=== PATIENT | female | born 1975 | race Caucasian/White ===

== ENCOUNTER → 2020-12-06 10:32 | Outpatient (CLI) | payer BC, SELFPAY ==
--- NOTE | ~2020-12-06 | US_ITS ---
EXAMINATION: US thyroid EXAM DATE: 12/06/2020 10:53 INDICATION: Hypothyroidism. TECHNIQUE: Multiple grayscale and Doppler images of the thyroid were obtained (by a technologist who performed the scan) and subsequently reviewed. Individual nodules and recommendations may be reporte d in accordance with TI-RADS system as designated by the 2017 ACR White Paper TI-RADS committee. Comp wilfrido is made to prior examination from 10/11/2015. FINDINGS: The right there are lobe measures 5.0 x 2.0 x 1.9 cm, the left measuring 5.1 x 1.5 x 1.7 cm. Mildly h eterogeneous thyroid echogenicity with scattered nodules. Largest nodule is in the right thyroid lobe measuring 3.0 x 1.4 x 2.1 cm, predominantly solid (2 poin ts), hypoechoic (2 points), wider than tall, smooth well defined margin, without echogenic foci, drew gory TR4 for this nodule. In 2016 this nodule was predominantly cystic, measuring 3.4 x 1.6 x 2.5 cm , has decreased in size but suspect increase in solid component. This nodule was previously biopsied on 10/18/2015, please correlate with histology of that report. Largest left thyroid lobe nodule measures 1.3 x 0.7 x 1.4, solid (2 points), hypoechoic (2 points), w ider than tall, smooth well defined margin, without echogenic foci, category TR4 for this nodule. Th is is unchanged compared to 2016, has demonstrated stability and this likely benign. Other category TR 3 and 4 nodules which are smaller. IMPRESSION: Multinodular goiter. Reviewed, dictated and finalized at location B. DENTURED APPRENTICE IMPRESSION: Multinodular goiter.
== END ==
PROVIDERS: PCP Internal Medicine; Visit Provider Internal Medicine
DX: E03.9 Hypothyroidism, unspecified (principal); E04.2 Nontoxic multinodular goiter
CPT/HCPCS: 76536

== ENCOUNTER 2021-01-10 13:23 | Outpatient (CLI) | payer BC, SELFPAY ==
--- NOTE | ~2021-01-10 | US_ITS ---
EXAMINATION: US FNA w image guidance DATE: 01/10/2021 14:28 INDICATION: Nontoxic thyroid nodule. TECHNIQUE: The procedure and its benefits and risks were discussed with the patient. Risks specifically discusse d included bleeding. The patient verbalized understanding of the risks and agreed to proceed. The nec k was prepped and draped in the usual sterile manner. 1% lidocaine was used for local anesthesia. 5 passes were made with a 25G needle into the lesion under ultrasound guidance. There were no immedia te complications. The patient understood to call the ordering physician for results after a week and verbalized that understanding. FINDINGS: Grayscale ultrasound images demonstrate needles advanced into a 3.0 cm right thyroid nodule for biops y. IMPRESSION: 1. Ultrasound-guided fine needle aspiration of a 3.0 cm right thyroid nodule. Reviewed, dictated and finalized at location A.
== END 2021-01-10 13:24 | disposition home or self-care (01) ==
PROVIDERS: PCP Internal Medicine; Visit Provider Otolaryngology
DX: E04.1 Nontoxic single thyroid nodule (principal)
CPT/HCPCS: 10005; 88173; 88305

== ENCOUNTER → 2021-07-14 08:13 | Outpatient (CLI) | payer BC, SELFPAY ==
--- NOTE | ~2021-07-14 | US_ITS ---
US right upper quadrant INDICATION: Hyperbilirubinemia. PROCEDURE: Realtime right upper abdominal ultrasound. COMPARISON: No prior studies for comparison. FINDINGS: The pancreas is normal without focal mass or pancreatic ductal dilation. There are multipl e liver cysts. Otherwise, liver echotexture is slightly increased suggesting fatty infiltration. The re is normal directional flow in the portal vein. The gallbladder is normal without stones, gallbladder wall thickening or pericholecystic fluid. Comm on bile duct measures 4 mm. No sonographic Fernandez's sign. There is an echogenic 1 cm mass lower pole of the right kidney IMPRESSION: 1: Echogenic 1 cm right renal mass of the lower pole, nonspecific. Consider benign angiomyolipoma. Re commend correlation with CT. 2: Liver cysts. Reviewed, dictated and finalized at location B. IMPRESSION: 1: Echogenic 1 cm right renal mass of the lower pole, nonspecific. Consider susy ign angiomyolipoma. Recommend correlation with CT. 2: Liver cysts.
== END ==
PROVIDERS: PCP Internal Medicine; Visit Provider Internal Medicine
DX: E80.6 Other disorders of bilirubin metabolism (principal); K76.89 Other specified diseases of liver; N28.89 Other specified disorders of kidney and ureter
CPT/HCPCS: 76705

== ENCOUNTER → 2021-12-27 09:28 | Outpatient (CLI) | payer BC, SELFPAY ==
--- NOTE | ~2021-12-27 | US_ITS ---
EXAMINATION: US thyroid DATE: 12/27/2021 09:46 INDICATION: Nontoxic single thyroid nodule. TECHNIQUE: Multiple ultrasound images of the thyroid were obtained. COMPARISON: Ultrasound 12/06/2020, 10/11/15 FINDINGS: The right thyroid lobe measures 6.0 x 2.2 x 2.6 cm. The left thyroid lobe measures 5.6 x 1.7 x 2.3 c m. In the left thyroid lobe, there is an 11 mm solid, hypoechoic, gsxcq-drfi-jink nodule with smooth margin without echogenic foci (TI-RADS TR4), stable in size from 10/11/15. In the left thyroid lobe, there is a 15 mm solid, hypoechoic, mvuye-rfgr-jazo nodule with ill-defined margin without echogenic foci (TR4), stable in size from 10/11/15. In the left thyroid lobe, there is a 15 mm solid, hypoechoic , hhpqq-qnmn-yhjg nodule with smooth margin without echogenic foci (TR4), stable in size from 10/11/15 . In the right thyroid lobe, there is a 3.1 cm almost entirely solid, hypoechoic, kudbv-xxnk-vipw nod ule with lobulated margin without echogenic foci (TR4), stable from 01/10/21 when fine-needle aspirati on demonstrated benign pathology. There are subcentimeter nodules in the thyroid. IMPRESSION: 1. Stable multinodular goiter, likely benign. Reviewed, dictated and finalized at location E.
== END ==
PROVIDERS: Visit Provider Internal Medicine Endocrinology, Diabetes & Metabolism
DX: E04.2 Nontoxic multinodular goiter (principal)
CPT/HCPCS: 76536

== ENCOUNTER 2022-01-01 13:46 | Outpatient (CLI) | payer BC, SELFPAY ==
--- NOTE | ~2022-01-01 | NM_ITS ---
EXAMINATION: NM thyroid scan w uptake DATE: 01/04/2022 20:37 INDICATION: Nontoxic single thyroid nodule. COMPARISON: Ultrasound 12/27/2021, 10/11/15 TECHNIQUE: 0.334 mCi I-123 was administered orally. Scintigraphic images of the thyroid gland were o btained at 24 hours. Thyroid uptake was calculated by the technologist. FINDINGS: The thyroid uptake is 30% (normal 10-30%), with the right lobe measuring 23% uptake and the left 7%. There are hypoactive left thyroid nodules. IMPRESSION: 1. Normal 24-hour iodine uptake. 2. Hypoactive left thyroid nodules, likely benign given the chronicity demonstrated by ultrasound. Reviewed, dictated and finalized at location A. IMPRESSION: 1. Normal 24-hour iodine uptake. 2. Hypoactive left thyroid nodules, likely benign given the chronicity demonst rated by ultrasound.
== END 2022-01-01 13:47 | disposition home or self-care (01) ==
PROVIDERS: PCP Internal Medicine
DX: E04.1 Nontoxic single thyroid nodule (principal)
CPT/HCPCS: 78014; A9516

== ENCOUNTER 2023-02-15 00:59 | Day surgery (SDC) | payer BC, SELFPAY ==
[2023-02-02 09:28] VITALS: BMI 34.4
[2023-02-15 08:59] VITALS: BP 126/77; PULSE 79; RESP 20; TEMP 36.4; O2SAT 98
[2023-02-15] MEDS: LACTATED RINGERS 1,000 ML 150 ML IV CONT (09:13)
[2023-02-15 09:15] LABS: Glucose Point of Care 106 mg/dl (65-105)
--- NOTE | 2023-02-15 09:27 | WPDANESEPPF ---
Anes - Initial Pre Proc Eval Procedure: Operation Date: 02/15/23 10:00 Proposed Procedures p Screening Colonoscopy - Harjinder Stack MD Date/Time: 02/15/23 09:27 Surgeon: Harjinder Stack MD Pre Op Diagnosis: neoplasm screening Patient Data Age: 48 Gender: F Height: 1.63 m Weight: 94.4 kg Last Vital Signs Temp 97.6 F 02/15/23 08:59 Pulse 79 02/15/23 08:59 Resp 20 02/15/23 08:59 BP 126/77 02/15/23 08:59 Pulse Ox 98 02/15/23 08:59 O2 Del Method Room Air 02/15/23 08:59 Allergies Allergy/AdvReac Type Severity Reaction Status Date / Time azithromycin Allergy Severe Hives Verified 02/15/23 08:58 [From Zithromax Z-Johnathon] pseudoephedrine Allergy Severe Hives Verified 02/15/23 08:58 [From Sudafed] tetracycline Allergy Severe throat Verified 02/15/23 08:58 swells E-Mycin Allergy Severe Unknown Uncoded 02/15/23 08:58 Levaquin Allergy Severe Sweating Uncoded 02/15/23 08:58 prednisone Allergy Severe Hives Uncoded 02/15/23 08:58 PSEUDOEPHEDRINE HCL Allergy Intermediate heart Uncoded 02/15/23 08:58 racing Home Medications Medication Instructions Recorded Confirmed Type lisinopril 10 mg tablet 10 mg PO DAILY 05/26/22 02/02/23 History metformin 500 mg tablet,extended 1,000 mg PO DAILY 05/26/22 02/02/23 History release 24 hr norethindrone (contraceptive) 0.35 0.35 mg PO DAILY #84 tabs 05/26/22 02/02/23 Rx mg tablet (Felisha) rosuvastatin 10 mg tablet 10 mg PO DAILY 05/26/22 02/02/23 History spironolactone 50 mg tablet 50 mg PO DAILY 05/26/22 02/02/23 History fluticasone propionate 50 2 spray intranasal PRN PRN 05/27/22 02/02/23 History mcg/actuation nasal allergies spray,suspension sodium,potassium,mag sulfates 17.5 See Rx Instructions PO .COMPLEX 01/14/23 02/02/23 Rx gram-3.13 gram-1.6 gram oral soln #354 mL (Suprep Bowel Prep Kit) Adult Probiotic 1 tab-cap PO DAILY 02/02/23 02/02/23 History azelastine 137 mcg (0.1 %) nasal 2 spray intranasal DAILY 02/02/23 02/02/23 History spray aerosol Laboratory Tests 02/15/23 09:06 POC Capillary Glucose 106 H mg/dl (65-105) Patient hx anesthesia problems: none Family hx anesthesia problems: none Results Review: All pre-operative results and documents have been reviewed as part of the pre-operative evaluation. [facility] Past Medical History Medical History High cholesterol History of IBS History of PCOS Hypertension Raynauds disease Sleep apnea Surgical History Surgical History H/O wisdom tooth extraction History of biopsy S/P thyroid biopsy Family History Family History Other Diabetes mellitus Hypertension Social History Social History Smoking status: Never smoker Alcohol intake: current Drinks per week: 1 Alcohol use details: socially Substance use: never Substance use type: does not use Living arrangements: with family Occupation/Education: occupation Gender identity (if verbalized by the patient): Female Sexual Orientation (if Verbalized by the Patient): Straight or Heterosexual Spiritual care concerns: No Anes - Eval Final PreProcedure Day of Procedure 02/15/23 09:27 Patient weight: obese Heart: regular rate and rhythm Lungs: clear to auscultation Airway: Mallampati scale class II Neurological: alert and oriented Last oral intake: >/= 8 hours ASA classification: III Emergent: no Anesthetic plan: proceed Anesthesia type and monitoring: general GIVS and standard monitoring Results Review: All pre-operative results and documents have been reviewed as part of the pre-operative evaluation. Informed Consent: The patient's anesthetic plan and its attendant risks and benefits were discussed with the patient/family/POA. [facility]
--- NOTE | 2023-02-15 09:42 | PM.HPGS ---
History of Present Illness History of Present Illness Consent: Risks, benefits, and alternatives have been discussed and questions answered. Patient agrees to proceed with procedure. Chief complaint: neoplasm screening Narrative: Lou Lawrence is a 48 year old female Presents for screening colonoscopy. Patient's current weight appetite and bowel movements are normal. Patient denies abdominal pain. She has had no bleeding. Family history noncontributory. Patient previously has been told she has irritable bowel syndrome. She does have frequent bowel movements. Ten years ago had a colonoscopy apparently was unremarkable. Review of Systems Review of Systems: Review of systems noncontributory. [facility] Past Medical History Medical History High cholesterol History of IBS History of PCOS Hypertension Raynauds disease Sleep apnea Surgical History Surgical History H/O wisdom tooth extraction History of biopsy S/P thyroid biopsy Family History Family History Other Diabetes mellitus Hypertension Social History Social History Smoking status: Never smoker Alcohol intake: current Drinks per week: 1 Alcohol use details: socially Substance use: never Substance use type: does not use Living arrangements: with family Occupation/Education: occupation Gender identity (if verbalized by the patient): Female Sexual Orientation (if Verbalized by the Patient): Straight or Heterosexual Spiritual care concerns: No Meds Home Medications and Allergies Home Medications Medication Instructions Recorded Confirmed Type lisinopril 10 mg tablet 10 mg PO DAILY 05/26/22 02/02/23 History metformin 500 mg tablet,extended 1,000 mg PO DAILY 05/26/22 02/02/23 History release 24 hr norethindrone (contraceptive) 0.35 0.35 mg PO DAILY #84 tabs 05/26/22 02/02/23 Rx mg tablet (Felisha) rosuvastatin 10 mg tablet 10 mg PO DAILY 05/26/22 02/02/23 History spironolactone 50 mg tablet 50 mg PO DAILY 05/26/22 02/02/23 History fluticasone propionate 50 2 spray intranasal PRN PRN 05/27/22 02/02/23 History mcg/actuation nasal allergies spray,suspension sodium,potassium,mag sulfates 17.5 See Rx Instructions PO .COMPLEX 01/14/23 02/02/23 Rx gram-3.13 gram-1.6 gram oral soln #354 mL (Suprep Bowel Prep Kit) Adult Probiotic 1 tab-cap PO DAILY 02/02/23 02/02/23 History azelastine 137 mcg (0.1 %) nasal 2 spray intranasal DAILY 02/02/23 02/02/23 History spray aerosol Allergies Allergy/AdvReac Type Severity Reaction Status Date / Time azithromycin Allergy Severe Hives Verified 02/15/23 08:58 [From Zithromax Z-Johnathon] pseudoephedrine Allergy Severe Hives Verified 02/15/23 08:58 [From Sudafed] tetracycline Allergy Severe throat Verified 02/15/23 08:58 swells E-Mycin Allergy Severe Unknown Uncoded 02/15/23 08:58 Levaquin Allergy Severe Sweating Uncoded 02/15/23 08:58 prednisone Allergy Severe Hives Uncoded 02/15/23 08:58 PSEUDOEPHEDRINE HCL Allergy Intermediate heart Uncoded 02/15/23 08:58 racing Vital Signs Vital Signs - 24 hr 02/15/23 08:59 Temperature 97.6 F Pulse Rate 79 Respiratory Rate 20 Blood Pressure 126/77 Pulse Oximetry 98 Oxygen Delivery Room Air Exam Narrative: Physical exam reveals patient to be alert. Vital signs stable. HEENT exam is unremarkable. Patient is anicteric. Lungs are clear to auscultation and percussion. Heart is without murmur or extra sounds. Abdominal exam bowel sounds are present soft nontender with no organomegaly. Digital external rectal exam is normal. Assessment and Plan Assessment and plan (1) Encounter for screening colonoscopy: Code(s): Z12.11 - Encounter for screening for malignant
[2023-02-15 11:02] VITALS: BP 100/63; PULSE 68; RESP 22; O2SAT 100
[2023-02-15 11:12] VITALS: BP 110/69; PULSE 66; RESP 20; O2SAT 100
[2023-02-15 11:22] VITALS: BP 116/73; PULSE 64; RESP 20; O2SAT 97
== END 2023-02-15 11:33 | disposition home or self-care (01) ==
PROVIDERS: PCP Internal Medicine; Visit Provider Internal Medicine Gastroenterology
PROC: 0DJD8ZZ Inspection of Lower Intestinal Tract, Via Natural or Artificial Opening Endoscopic (ICD-10-PCS; CPT 45378; principal; 2023-02-15 10:00)
DX: Z12.11 Encounter for screening for malignant neoplasm of colon (principal); K64.8 Other hemorrhoids; I10 Essential (primary) hypertension; I73.00 Raynaud's syndrome without gangrene; E78.00 Pure hypercholesterolemia, unspecified
CPT/HCPCS: 45378; 82948; J2704; J7120

== ENCOUNTER 2024-11-24 14:15 | Outpatient (CLI) | payer OTHER, SELFPAY | END 2024-11-24 14:16 | disposition home or self-care (01) | LOC: MICIMG 14:15 | PROVIDERS: PCP Internal Medicine; Visit Provider Internal Medicine | DX: R94.6 Abnormal results of thyroid function studies (principal) | CPT/HCPCS: 70553; A9579 ==

== ENCOUNTER 2025-08-14 15:56 | Outpatient (CLI) | payer OTHER, SELFPAY ==
--- NOTE | ~2025-08-14 | XR_ITS ---
EXAMINATION: XR hand RT 2V, 08/14/2025 16:02 RN PSYCHIATRIC HISTORY: Raynauds syndrome w/o gangrene COMPARISON: No comparisons available. Findings: No acute fracture or malalignment. No significant degenerative changes. Soft tissues unremarkable. Impression: No acute fracture or malalignment. Reviewed, dictated and finalized at location P. PSYCHIATRIC Impression: No acute fracture or malalignment.
--- NOTE | ~2025-08-14 | XR_ITS ---
EXAMINATION: XR foot LT 2V, 08/14/2025 16:02 JUMP IRON MACHINE PRESSER HISTORY: Raynauds syndrome w/o gangrene COMPARISON: No comparisons available. Findings: No acute fracture or malalignment. No significant degenerative changes. Soft tissues unremarkable. Impression: No acute fracture or malalignment. Reviewed, dictated and finalized at location P. IRON MACHINE PRESSER Impression: No acute fracture or malalignment.
--- NOTE | ~2025-08-14 | XR_ITS ---
EXAMINATION: XR foot RT 2V, 08/14/2025 16:02 EPIC BEACON ANALYST HISTORY: Raynauds syndrome w/o gangrene COMPARISON: No comparisons available. Findings: No acute fracture or malalignment. No significant degenerative changes. Soft tissues unremarkable. Impression: No acute fracture or malalignment. Reviewed, dictated and finalized at location P. BEACON ANALYST Impression: No acute fracture or malalignment.
--- NOTE | ~2025-08-14 | XR_ITS ---
EXAM/PROCEDURE: XR lumbar spine min 4V HISTORY: Raynauds syndrome w/o gangrene COMPARISON: None available. TECHNIQUE: 3 view lumbar series FINDINGS: At least moderately severe sclerotic changes in the posterior elements at L4-S1. Moderately severe disc space narrowing and spondylosis at L5-S1. Milder degenerative appearing changes at levels above. No acute or aggressive bony or soft tissue process seen. On bone and soft tissue detail partially obscured by large amount of overlying stool and bowel gas. IMPRESSION: Multiple level degenerative changes most advanced at L5-S1. No gross acute or aggressive bony or soft tissue process seen. Reviewed, dictated and finalized at location A. L PATTERNMAKER IMPRESSION: Multiple level degenerative changes most advanced at L5-S1. No gross acute or a ggressive bony or soft tissue process seen.
--- NOTE | ~2025-08-14 | XR_ITS ---
XR cervical spine 4-5V Indication: Raynauds syndrome w/o gangrene Comparison: None Findings: No fracture, no subluxation flexion and extension The disc heights are intact. Soft tissues unremarkable Impression: No acute abnormality. Reviewed, dictated and finalized at location P. ITY CONTROL SPECIALIST Impression: No acute abnormality.
--- NOTE | ~2025-08-14 | XR_ITS ---
EXAMINATION: XR hand LT 2V, 08/14/2025 16:02 MASTER COSMETOLOGIST HISTORY: Raynauds syndrome w/o gangrene COMPARISON: No comparisons available. Findings: No acute fracture or malalignment. No significant degenerative changes. Soft tissues unremarkable. Impression: No acute fracture or malalignment. Reviewed, dictated and finalized at location P. ER COSMETOLOGIST Impression: No acute fracture or malalignment.
--- NOTE | ~2025-08-14 | XR_ITS ---
EXAM/PROCEDURE: XR sacroiliac joints min 3V HISTORY: Raynauds syndrome w/o gangrene COMPARISON: None available. TECHNIQUE: Sacroiliac x-rays FINDINGS: Mild sclerotic changes at the SI joint with no subchondral cystic or erosive changes. No prominent spurring. 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 Reviewed, dictated and finalized at location A. T END SOFTWARE ENGINEER
== END 2025-08-14 15:57 | disposition home or self-care (01) ==
LOC: MICIMG 15:57
PROVIDERS: PCP Internal Medicine; Visit Provider Internal Medicine
DX: I73.00 Raynaud's syndrome without gangrene (principal); M51.379 Other intervertebral disc degeneration, lumbosacral region without mention of lumbar back pain or lower extremity pain; M53.3 Sacrococcygeal disorders, not elsewhere classified
CPT/HCPCS: 72050; 72110; 72202; 73120; 73620